=== PATIENT | male | born 1970 | race Caucasian/White ===

== ENCOUNTER 2018-06-23 16:38 | Inpatient (IN) ==
[2018-06-23] MEDS ORDERED: Sodium Chloride 0.9% 1,000 ML PRIMARY IV ONE (16:53)
[2018-06-23] MEDS ORDERED: Sodium Chloride 0.9% 1,000 ML, Magnesium Sulfate 2gm (Premix) 50 ML with Multivitamin I... IV ONE ×5 (16:54)
[2018-06-23 17:10] LABS: BASOPHILS # (AUTO) 0.01 10*3/UL; BASOPHILS % (AUTO) 0.2 % (0-1); EOSINOPHILS # (AUTO) 0.01 10*3/UL; EOSINOPHILS % (AUTO) 0.2 % (0-8); Hematocrit [HCT] 36.1 % (42.0-52.0); Hemoglobin [HGB] 13.3 g/dL (14.0-18.0); LYMPHOCYTES # (AUTO) 1.15 10*3/uL; MEAN CORPUSCULAR HGB CONC 36.8 g/dL (33-37); MEAN CORPUSCULAR VOLUME 81.3 FL (80-90); MEAN PLATELET VOLUME 9.3 FL (7.4-12.2); MONOCYTES # (AUTO) 0.68 10*3/UL (0.3-0.8); MONOCYTES % (AUTO) 11.3 % (5-15); NEUTROPHILS # (AUTO) 4.15 10*3/UL; NEUTROPHILS % (AUTO) 69.1 % (50-80); RED BLOOD COUNT 4.44 10^6/uL (4.70-6.10)
[2018-06-23 17:22] LABS: BLOOD UREA NITROGEN 9 mg/dL (7-22); SERUM ALBUMIN 3.9 g/dL (3.5-4.8)
[2018-06-23 17:24] LABS: PLATELET MORPHOLOGY COMMENT NORMAL MORPHOLOGY (NORM); SALICYLATE < 1.0 mg/dl (0-20); WBC MORPHOLOGY COMMENT NORMAL MORPHOLOGY (NORM)
[2018-06-23 17:25] LABS: RBC MORPHOLOGY COMMENT SEE COMMENTS (NORM)
[2018-06-23 18:14] LABS: LIPASE 856 IU/L (23-300)
[2018-06-23 19:45] LABS: URINE SAMPLE TYPE VOIDED SPECIMEN
[2018-06-23 19:47] LABS: CLARITY,URINE CLEAR (CLEAR)
[2018-06-23 19:48] LABS: AMPHETAMINE SCREEN NEGATIVE (NEG); CANNABINOID SCREEN,URINE NEGATIVE (NEG); COCAINE SCREEN NEGATIVE (NEG); METHADONE URINE SCREEN NEGATIVE (NEG); METHAMPHETAMINES SCREEN,URINE NEGATIVE (NEG); OPIATE SCREEN,URINE NEGATIVE (NEG); URINE SPECIFIC GRAVITY - MAN 1.005
--- NOTE | 2018-06-23 19:57 | DI ---
CT Head WO Contrast,06/23/2018 6:23 PM: Clinical History: Confusion Previous Exam: None at this facility. Findings: Multiple helically acquired CT images are obtained through the brain without contrast, and demonstrat e mild diffuse age-related volume loss. There is no mass, hemorrhage or midline shift. Surrounding so ft tissue and osseous structures are unremarkable. Impression: Mild diffuse age-related volume loss otherwise unremarkable.
--- NOTE | 2018-06-23 20:22 | DI ---
CT Abdomen/Pelvis W Contrast,06/23/2018 6:22 PM: Clinical History: Elevated pancreatic enzymes. Previous Exam: None at this facility. Findings: Multiple helically acquired CT images are obtained through the abdomen and pelvis following the intra venous administration of 75 cc of Isovue 300, and demonstrates clear lung bases. A few coronary artery calcifications are seen. There is diffuse fatty infiltration of the liver. The gallbladder is enlarged and distended with ston es within the gallbladder neck. The spleen is unremarkable. The pancreas, adrenals are unremarkable. There are prominent extrarenal p elves bilaterally. There is normal orthotopic insertion of the ureters on the urinary bladder. The ur inary bladder is enlarged and distended. The sigmoid colon is unremarkable. The descending colon, transverse colon and ascending colon are unremarkable. Diffuse degenerative changes of the spine are seen with loss of intervertebral disc height at the L5/ S1 level. Impression: 1. Enlarged, distended gallbladder containing layering stones within the gallbladder neck. 2. Enlarged and distended urinary bladder with some prominence of the ureters. 3. Fatty liver. 4. Normal pancreas.
--- NOTE | 2018-06-23 22:12 | PDOC ---
HPI - History of Present Illness History of Present Illness: This is a 7-year-old gentleman with no past medical history other than I believe schizophrenia is very hard historian patient is intoxicated. [facility] patient is arrested with handcuffs for nausea and vomiting and workup in the ER revealed alcoholic pancreatitis alcoholic intoxication and cholelithiasis on CAT scan and hypokalemia at present time patient is a has pretty severe tremors he is a heavy drinker he states he is a binge drinker and will be admitted for further evaluation and treatment denies chest painin shortness of breath does complain of mild left upper quadrant abdominal pain Past Medical History Medical History: Schizophrenia Tobacco Use: Current Every Day Smoker Do you dip or chew tobacco: No In the Past 12 Months, Have Used or Abuse Any of the Following Substance: None Medication / Allergies Home Medications: Home Medications 3 Medication Instructions Recorded Confirmed Type NK [No Home Medications Reported] 10/24/14 10/24/14 History Allergies/Adverse Reactions: Allergies 3 Allergy/AdvReac Type Severity Reaction Status Date / Time No Known Allergies Allergy Verified 10/24/14 23:50 Review of Systems - Review of Systems All Systems: Reviewed & No Additional Complaints Except as Stated - Respiratory Respiratory: DENIES: Negative System Review, Cough, Sputum, Dyspnea At Rest, Dyspnea with Exertion, Pleuritic Pain, Hemoptysis, Wheezing, Other, See HPI - Cardiovascular Cardiovascular: DENIES: Negative System Review, Chest Pain, Edema, Syncope, Palpitations, Orthopnea, Paroxysmal Nocturnal Dyspnea, Other, See HPI - Gastrointestinal Gastrointestinal / Abdominal: REPORTS: Nausea, Vomiting, Abdominal Pain. DENIES : Bloody Stool, Regurgitation Exam - Vitals Vital Signs: Vital Signs Temperature 97.8 F Temperature Source Temporal Artery Scan Pulse Rate [Pulse Oximeter 124 Right] Respiratory Rate 20 Blood Pressure [Left Arm] 153/82 Pulse Ox 98 Oxygen Delivery Method Room Air Height 6 ft 2 in Weight 240 lb - General General Appearance: Cooperative - Head Head Exam: Normal Inspection, Normocephalic, Atraumatic - Eye Eye Exam: POSITIVE: Normal Appearance, PERRL, EOMI, No Scleral Icterus - Respiratory Respiratory Exam: POSITIVE: Clear to Auscultation - Bilaterally, Breathing Non Labored, Normal To Percussion, Normal to Percussion and Palpation - Cardiovascular Cardiovascular Exam: POSITIVE: RRR, No Murmur, No Clicks, No Gallops, No Rubs, PMI Non-Displaced - GI/Abdominal Additional GI/Abdominal Exam Details: Mild left and right upper quadrant pain on deep palpation no guarding or rebound - Extremities Extremities Exam: POSITIVE: No Clubbing Present, No Edema Present, No Cyanosis Present - Neurological Neurological Exam: POSITIVE: Alert, Oriented x 3, No Facial Droop, Speech Intact / Clear Additional Neurological Exam Details: Moderate to severe tremors - Psychiatric Psychiatric Exam: POSITIVE: Anxious Results - Labs CBC and BMP: 06/23/18 17:00 06/23/18 17:00 Assessment and Plan - Patient Problems (1) Alcohol withdrawal syndrome Current Visit: Yes Status: Acute Comment: Patient will be admitted the treated with thiamine IV fluids multivitamin or a received banana bag in the ER IV fluids with potassium to replace his potassium CIWA scale with Ativan will be assessing him throughout the night in regards to his alcohol withdrawals patient is under arrest and to diabetes her with him Code(s): F10.239 - Alcohol dependence with withdrawal, unspecified (2) Alcoholic pancreatitis Current Visit: Yes Status: Acute Comment: Keep patient nothing by mouth this could also be from a cholelithiasis ultrasound is pending Dr. Dailey was consulted over the phone according to Dr. Prather Code(s): K85.20 - Alcohol induced acute pancreatitis without necrosis or infection (3) Cholelithiasis Current Visit: Yes Status: Acute Comment: Ultrasound pending to evaluate common bile duct Code(s): K80.20 - Calculus of gallbladder without cholecystitis without obstruction (4) Psychotic disorder Current Visit: No Status: Acute Code(s): F29 - Unspecified psychosis not due to a substance or known physiological condition
--- NOTE | 2018-06-23 23:10 | DI ---
EXAM: US Abdomen Limited, Right Upper Quadrant CLINICAL HISTORY: ITS.REASON gallstones, elevated pancreous enzymes Physician Notes: Tech Comments: TECHNIQUE: Real-time ultrasound of the right upper quadrant with image documentation. COMPARISON: No relevant prior studies available. FINDINGS: Liver: Echogenic liver suggesting fatty infiltration or hepatocellular disease. Hepatomegaly, 19.4 cm. Gallbladder: Cholelithiasis and sludge. The gallbladder wall is at upper limits of normal measuring 3 mm. Positive sonographic Mills sign. Common bile duct: Common bile duct upper limit of normal measuring 6 mm Pancreas: Pancreas is the mostly obscured. Right kidney: No hydronephrosis. IMPRESSION: Cholelithiasis and sludge. The gallbladder wall is at upper limits of normal measuring 3 mm. Positive sonographic Mills sign.
[2018-06-24] MEDS ORDERED: LIDOCAINE W/ SODIUM BICARB 0.5 ML SYR SUBD PRN (01:57)
[2018-06-24] MEDS ORDERED: HYDROmorphone 2 MG/1 ML IVP PRN (01:57)
[2018-06-24] MEDS ORDERED: ONDANSETRON 4 MG/2 ML VIAL IVP PRN (01:57)
[2018-06-24] MEDS ORDERED: LORazepam 2 MG/1 ML VIAL IVP PRN (01:57)
[2018-06-24] MEDS ORDERED: LORazepam Inj(ETOH withdrawal) 2 MG/ML VIAL IVP PRN (01:57)
[2018-06-24] MEDS ORDERED: ACETAMINOPHEN 500 MG TABLET PO PRN (01:57)
[2018-06-24] MEDS ORDERED: MAG HYDROX/AL HYDROX/SIMETH 30 ML SUSP PO PRN (01:57)
[2018-06-24] MEDS ORDERED: MAGNESIUM 400 MG/5 ML - 30 ML (MILK OF MAGNESIA) PO PRN (01:57)
[2018-06-24] MEDS ORDERED: Loperamide Tab 2 MG TABLET PO PRN (01:57)
[2018-06-24] MEDS: HEPARIN 5000 UNIT/1 ML SUBCUT SCH ×3 (02:10→19:59)
[2018-06-24] MEDS: LORazepam Inj(ETOH withdrawal) 2 MG/ML VIAL IVP PRN ×6 (02:11→19:54)
[2018-06-24 05:07] LABS: BILIRUBIN,URINE NEGATIVE (NEG); COLOR,URINE YELLOW (Y); GLUCOSE, URINE (UA) NEGATIVE (NEG); OCCULT BLOOD,URINE SMALL (NEG); PROTEIN,URINE NEGATIVE (NEG); UROBILINOGEN,URINE 0.2 EU/dL (0.2)
[2018-06-24 05:14] LABS: BACTERIA,URINE RARE; SQUAMOUS EPITHELIAL CELL,UR FEW; WBC,URINE 0
--- NOTE | 2018-06-24 07:12 | PDOC ---
General Adult HPI - General Chief Complaint: Clear for Confinement/DUI Draw Stated Complaint: schizophrenia issues/etoh Date Seen by Provider: 06/23/18 Time Seen by Provider: 16:40 Source: POSITIVE: Patient, Police, EMS Exam Limitations: POSITIVE: Intoxication Nurse's Notes Reviewed & Considered: Yes EMS Report Reviewed & Considered: Verbal - History of Present Illness Initial Comment: The patient is a 47-year-old male who is brought to the emergency department by EMS for medical clearance for correction. The patient does have a history of schizophrenia and a history of alcohol abuse. He does not currently take any medications. The patient's mom was discovered apparently killed several days ago in their home where the patient also resides. He had initially called 911 stating that he had "killed his mother". When EMS arrived the patient's mother was in fact and appeared to have been for several days. The patient states that he has been drinking heavily. EMS administered 3 doses of Zofran sublingual in route secondary to active nausea and vomiting. On arrival the patient reports abdominal pain. He does not have any other complaints. He states that he has been drinking a lot recently. Have you received a tetanus shot in the past 10 years?: No - Patient Home Medications Home Medications: Home Medications NK [No Home Medications Reported] 10/24/14 - Patient Allergies Allergies/Adverse Reactions: Allergies 3 Allergy/AdvReac Type Severity Reaction Status Date / Time No Known Allergies Allergy Verified 06/24/18 06:25 Past Medical History - heen HEENT History: Denies History Cardiovascular History: Denies History Respiratory History: Denies History Gastrointestinal History: Denies History Genitourinary History: Denies History Endocrine History: Denies History Musculoskeletal History: Denies History Neurological History: Denies History Blood Disorders: Denies History Psychiatric History: Schizophrenia Additional Psychiatric History: paranoid schizophrenia Male Reproductive History: Denies History Cancer History: Denies History In Past Year Been Physically Harmed or Verbally Threatened: No History of MDRO: No Tobacco Use: Current Every Day Smoker Alcohol Use: Other Type of alcohol normally used: Hard Liquor In the Past 12 Months, Have Used or Abuse Any Substance: None Previous Surgical History: No Type / Date of Surgery: "spinal, no wait my hand, no i don't think so"... unsure Significant Family History: No pertinent family hx Past Medical History Reviewed: Reviewed - No Changes ROS - Limitations ROS Limitations: Clinical Condition, Intoxication Constitution: DENIES: Fever Cardiovascular: DENIES: Chest Pain Neurological: DENIES: Headache Gastrointestinal: REPORTS: Abdominal Pain, Nausea, Vomitting Musculoskeletal: REPORTS: Denies MS Symptoms Eyes: REPORTS: Denies Symptoms ENT: REPORTS: Denies Symptoms Skin: DENIES: Rash General Adult Exam - General Appearance General Appearance: POSITIVE: Other (The patient is awake, he does appear to be intoxicated, he does answer questions and intermittently laughs inappropriately) - HEENT HEENT: POSITIVE: Head Inspection Nml, Eyes Inspection Nml, Ears Inspection Nml, Pharynx Inspect. Nml, Dry Mucous Membranes - Neck Neck: POSITIVE: Normal Inspection. NEGATIVE: Lymphadenopathy - Respiratory Respiratory: POSITIVE: No Respiratory Distress, Breath Sounds Normal - Cardiovascular Cardiovascular: POSITIVE: Regular Rate & Rhythm, No Murmur Peripheral Pulses: Dorsalis-pedis (R): 2+, Dorsalis-pedis (L): 2+ - Abdomen Abdomen: Soft: (All Quadrants), No Distention: (All Quadrants) Additional Abdominal Details: He does have tenderness in the epigastric region without guarding or rebound tenderness - Skin Skin: POSITIVE: Normal Color, No Rash - Extremities Extremity: Normal ROM: (All Extremities), Normal Inspection: (All Extremities) - Neurological / Psychological Neurological: POSITIVE: Oriented X3, Motor Normal, Sensation Normal, Other (No focal neurologic deficit) General Adult Progress - Results Reviewed by me Xrays/CTs/US Reviewed by me: Yes Discussed with Radiologist: Yes Radiology Findings: CT scan of the abdomen and pelvis reveals evidence of cholelithiasis and distended gallbladder, no significant inflammation around the pancreas, no other acute intra-abdominal findings per radiologist. Ultrasound of the gallbladder reveals a distended gallbladder with gallstones, gallbladder wall is borderline in thickness at 3 mm, common bile duct measures 6 mm at the upper limits of normal. Head CT shows no acute intracranial findings per radiologist. Lab Results Reviewed by Me: Yes Lab Results:: Laboratory Results 3 06/23/18 06/23/18 06/23/18 17:00 17:00 17:00 WBC 6.00 RBC 4.44 L Hgb 13.3 L Hct 36.1 L MCV 81.3 MCH 30.0 MCHC 36.8 RDW Std Deviation 42.5 RDW Coeff of Maria [place]isa 14.7 H Plt Count 89 L MPV 9.3 Immature Gran % (Auto) 0 Neut % (Auto) 69.1 Lymph % (Auto) 19.2 [place] % (Auto) 11.3 Eos % (Auto) 0.2 Baso % (Auto) 0.2 Immature Gran # (Auto) 0 Neut # (Auto) 4.15 Lymph # (Auto) 1.15 [place] # (Auto) 0.68 Eos # (Auto) 0.01 Baso # (Auto) 0.01 WBC Morphology Comment Normal morphology Plt Morphology Comment Normal morphology RBC Morph Comment See comments Sodium 128 L Potassium 3.4 L Chloride 93 L Carbon Dioxide 16 L Anion Gap 19 BUN 9 Creatinine 1.0 Estimated GFR > 60 BUN/Creatinine Ratio 9.00 Glucose 119 H Calculated Osmolality 265.0 L Calcium 8.0 L Magnesium 1.7 Total Bilirubin 0.7 AST 120 H ALT 67 Alkaline Phosphatase 77 Total Protein 7.1 Albumin 3.9 Globulin 3.1 Albumin/Globulin Ratio 1.20 L Amylase Lipase TSH 9.96 H Free T4 0.85 L Ur Collection Type Urine Color Urine Clarity Urine pH Ur Specific [place] U Specif Grav (Refrac) Urine Protein Urine Glucose (UA) Urine Ketones Urine Occult Blood Urine Nitrate Urine Bilirubin Urine Urobilinogen Ur Leukocyte Esterase Urine RBC Urine WBC Ur Squamous Epith Cells Ur Renal Epithelial Cell Urine Crystals Urine Bacteria Urine Casts Urine Mucus Urine Trichomonas Urine Yeast Ur Culture Indicated? Salicylates < 1.0 Urine Opiates Screen Ur Buprenorphine Ur Oxycodone Screen Urine Methadone Screen Ur Propoxyphene Screen Acetaminophen < 10.0 Barbiturate Screen U Tricyclic Antidepress Phencyclidine Screen Amphetamines Screen U Methamphetamines Scrn Benzodiazepines Screen Cocaine Screen U Marijuana (THC) Screen Serum Alcohol 414 H 3 06/23/18 06/23/18 17:00 19:15 WBC RBC Hgb Hct MCV MCH MCHC RDW Std Deviation RDW Coeff of [place] Plt Count MPV Immature Gran % (Auto) Neut % (Auto) Lymph % (Auto) [place] % (Auto) Eos % (Auto) Baso % (Auto) Immature Gran # (Auto) Neut # (Auto) Lymph # (Auto) [place] # (Auto) Eos # (Auto) Baso # (Auto) WBC Morphology Comment Plt Morphology Comment RBC Morph Comment Sodium Potassium Chloride Carbon Dioxide Anion Gap BUN Creatinine Estimated GFR BUN/Creatinine Ratio Glucose Calculated Osmolality Calcium Magnesium Total Bilirubin AST ALT Alkaline Phosphatase Total Protein Albumin Globulin Albumin/Globulin Ratio Amylase 218 H Lipase 856 H TSH Free T4 Ur Collection Type Voided specimen Urine Color Yellow Urine Clarity Clear Urine pH 6.0 Ur Specific [place] 1.005 U Specif Grav (Refrac) 1.005 Urine Protein Negative Urine Glucose (UA) Negative Urine Ketones Negative Urine Occult Blood Small H Urine Nitrate Negative Urine Bilirubin Negative Urine Urobilinogen 0.2 Ur Leukocyte Esterase Negative Urine RBC 1-3 Urine WBC 0 Ur Squamous Epith Cells Few Ur Renal Epithelial Cell None Urine Crystals None Urine Bacteria Rare Urine Casts None Urine Mucus Few Urine Trichomonas None Urine Yeast None Ur Culture Indicated? Culture not set Salicylates Urine Opiates Screen Negative Ur Buprenorphine Negative Ur Oxycodone Screen Negative Urine Methadone Screen Negative Ur Propoxyphene Screen Negative Acetaminophen Barbiturate Screen Negative U Tricyclic Antidepress Negative Phencyclidine Screen Negative Amphetamines Screen Negative U Methamphetamines Scrn Negative Benzodiazepines Screen Negative Cocaine Screen Negative U Marijuana (THC) Screen Negative Serum Alcohol CBC and BMP: 06/23/18 17:00 06/23/18 17:00 - Patient's Progress MDM / ED Course: The patient appeared to be intoxicated on arrival and appeared to be significantly dehydrated. An IV was established and he received 1 L bolus of normal saline. He also received a banana bag. Blood work does reveal sodium of 128 and potassium of 3.4, lipase is elevated at 850 and amylase is elevated at 208. Liver enzymes are normal except for slightly elevated AST. Blood alcohol is significantly elevated at 414. Tox screen is negative. TSH is elevated at 9.9 with a free T4 of 0.85. CT scan of the head was unremarkable per radiologist. CT scan of the abdomen and pelvis was performed secondary to the elevated pancreas enzymes and shows evidence of cholelithiasis and distended gallbladder with no other acute abnormalities per radiologist. Subsequent gallbladder ultrasound shows distended gallbladder with gallstones and sludge, gallbladder wall is borderline at 3 mm and common bile duct measures [address] Dailey was consulted from general surgery prior to the ultrasound results. His recommendation was for medical treatment and gallbladder ultrasound to evaluate bile duct. The patient has alcohol intoxication with history of alcohol abuse and schizophrenia. He also has evidence of current pancreatitis which may be alcoholic pancreatitis versus gallstone pancreatitis. Dr. Zaragoza was contacted and has agreed to admit the patient. The patient is a significant risk for withdrawal. - Consult Counseled: POSITIVE: Patient, RE: Lab Results, RE: Radiology Results, RE: DX Patient Care Time - Estimated PCT Patient Care Time (In Minutes): 50 Vital Signs - VS Reviewed Vital Signs Reviewed: Yes Discharge Clinical Impression: Cholelithiasis, Pancreatitis, Alcohol intoxication, Schizophrenia, Dehydration , Hypothyroidism, Hyponatremia, Hypokalemia Discharge Disposition: Admit to Inpatient Condition: Fair Date Decision to Admit to Inpatient: 06/23/18 Time Decision to Admit to Inpatient: 22:00
[2018-06-24] MEDS ORDERED: DEXTROSE 50%-WATER SYRINGE 50 ML SYRINGE IVP ONE (08:45)
[2018-06-24] MEDS: PANTOPRAZOLE IV 40 MG VIAL IVP SCH (08:53)
[2018-06-24] MEDS: MAGNESIUM OXIDE 400 MG TABLET PO SCH ×2 (08:54→21:03)
[2018-06-24] MEDS ORDERED: THIAMINE 100 MG/1 ML - 2 ML IM SCH (09:00)
[2018-06-24 09:27] LABS: BASOPHILS # (AUTO) 0.01 10*3/UL; BASOPHILS % (AUTO) 0.2 % (0-1); EOSINOPHILS # (AUTO) 0.02 10*3/UL; EOSINOPHILS % (AUTO) 0.3 % (0-8); Hematocrit [HCT] 35.5 % (42.0-52.0); Hemoglobin [HGB] 12.8 g/dL (14.0-18.0); MEAN CORPUSCULAR HGB CONC 36.1 g/dL (33-37); MEAN CORPUSCULAR VOLUME 83.3 FL (80-90); MONOCYTES # (AUTO) 0.56 10*3/UL (0.3-0.8); MONOCYTES % (AUTO) 9.2 % (5-15); RED BLOOD COUNT 4.26 10^6/uL (4.70-6.10)
[2018-06-24 09:29] LABS: BLOOD UREA NITROGEN 6 mg/dL (7-22); BUN/CREATININE RATIO 6.66 (6-20); LIPASE 627 IU/L (23-300); SERUM ALBUMIN 3.4 g/dL (3.5-4.8)
[2018-06-24 09:54] LABS: PLATELET MORPHOLOGY COMMENT NORMAL MORPHOLOGY (NORM); RBC MORPHOLOGY COMMENT SEE COMMENTS (NORM); WBC MORPHOLOGY COMMENT NORMAL MORPHOLOGY (NORM)
--- NOTE | 2018-06-24 11:58 | PDOC(PROG) ---
Interval History: Patient is resting comfortably on Ativan for alcohol withdrawal syndrome Objective : Data - Labs CBC and BMP: 06/24/18 05:00 06/24/18 05:00 Objective : Exam - General General Appearance: Cooperative - Respiratory Respiratory Exam: Clear to Auscultation - Bilaterally, Breathing Non Labored, Normal To Percussion, Normal to Percussion and Palpation - Cardiovascular Cardiovascular Exam: RRR, No Murmur, No Clicks, No Gallops, No Rubs, PMI Non- Displaced - GI/Abdominal GI/Abdominal Exam: Normal Bowel Sounds, Non Tender, Non Distended, Soft, No Masses, No Hepatomegaly, No Splenomegaly, No Organomegaly - Extremities Extremities Exam: No Clubbing Present, No Edema Present, No Cyanosis Present Assessment and Plan - Patient Problems (1) Alcohol withdrawal syndrome Current Visit: Yes Status: Acute Comment: Continue Ativan per CIWA scale patient is resting comfortably alcohol level done in the 150 patient in the mild withdrawals are present time this could exacerbate in the future we will continue monitoring Code(s): F10.239 - Alcohol dependence with withdrawal, unspecified (2) Alcoholic pancreatitis Current Visit: Yes Status: Acute Comment: Lipase slightly improved ultrasound the common bile duct 6 mm Code(s): K85.20 - Alcohol induced acute pancreatitis without necrosis or infection (3) Cholelithiasis Current Visit: Yes Status: Acute Comment: Common bile duct 6 mm bilirubin is normal I believe this is not gallstone pancreatitis at this time Code(s): K80.20 - Calculus of gallbladder without cholecystitis without obstruction (4) Psychotic disorder Current Visit: No Status: Acute Code(s): F29 - Unspecified psychosis not due to a substance or known physiological condition
--- NOTE | 2018-06-24 14:33 | CONSULT ---
Consult Note - Consult Consult Date: 06/24/18 Reason for Consult: PreOp Consulation : General Surgery Requesting Physician: Dr. Masoud Chapa's Primary Care Provider: NONE NONE - History of Present Illness History of Present Illness: The patient is a 47-year-old male I'm asked to see for gallstones and pancreatitis. Apparently the patient called 911 reporting that he killed his mother. He was brought to the hospital for medical clearance prior to incarceration. He was grossly intoxicated. He was found to have an elevated amylase at 218 and lipase at 850. Those numbers have both decreased this morning but are still elevated. He reports he's been drinking about 20 cans of beer a day. His bilirubin and alkaline phosphatase were normal as was his ALT. His AST was elevated slightly. White blood count was normal. CT scan showed a fatty liver with gallstones. No evidence of acute pancreatitis. Subsequent ultrasound shows gallstones without evidence of acute cholecystitis. The wall was measured at 3 mm in thickness but I think that is exaggerated and today's radiologist agrees. There are some mobile gallstones within the gallbladder. Common bile duct is upper normal at 6 mm. Last night the patient's blood alcohol was 414. This morning it is still 165. I was told by the ER physician he has a history of schizophrenia but the patient denies it. He has seen psychiatrists in the past. He is not on any medications. The patient tells me that he makes his own decisions and no one has DURABLE POWER OF PAN CLEANER for him. He denies a history of prior pancreatitis. He was unaware he had gallstones. Patient denies any significant abdominal pain. Review of Systems - Gastrointestinal Gastrointestinal / Abdominal: REPORTS: Negative System Review Past Medical History Medical History: Schizophrenia. This alcohol consumption. Pancreatitis. Gallstones. Tobacco Use: Current Every Day Smoker Do you dip or chew tobacco: No In the Past 12 Months, Have Used or Abuse Any of the Following Substance: None Alcohol Use: Heavy (20 cans of beer a day) Medication / Allergies Home Medications: Home Medications 3 Medication Instructions Recorded Confirmed Type NK [No Home Medications Reported] 10/24/14 06/24/18 History Allergies/Adverse Reactions: Allergies 3 Allergy/AdvReac Type Severity Reaction Status Date / Time No Known Allergies Allergy Verified 06/24/18 06:25 Results - Labs CBC and BMP: 06/24/18 05:00 06/24/18 05:00 - Imaging Status: Image Reviewed by Me (And discussed with the radiologist), Report Reviewed by Me Exam - Vitals Vital Signs: Vital Signs Temperature 99 F Temperature Source Oral Pulse Rate [Pulse Oximeter 75 Right] Pulse Rate 75 Respiratory Rate 20 Blood Pressure [Left Arm] 152/70 Blood Pressure 152/70 Pulse Ox 95 Oxygen Flow Rate 2 Oxygen Delivery Method Nasal Cannula Height 6 ft 2 in Weight 235 lb 11.2 oz - General General Appearance: No Acute Distress, Cooperative Additional General Exam Details: Tremors. - Respiratory Respiratory Exam: POSITIVE: Clear to Auscultation - Bilaterally, Breathing Non Labored - Cardiovascular Cardiovascular Exam: POSITIVE: RRR, No Murmur - GI/Abdominal GI/Abdominal Exam: POSITIVE: Normal Bowel Sounds, Non Tender, Non Distended, Soft Assessment and Plan - Patient Problems (1) Acute pancreatitis Current Visit: Yes Status: Acute Comment: I favor alcohol -induced pancreatitis despite him having gallstones. More likely alcohol-related with normal alkaline phosphatase and bilirubin. He has a mild elevation of his AST but he has been drinking a lot and has fatty infiltration of his liver on CT scan. His pancreatitis is relatively mild. It is improving. Could probably start the patient on clear liquids. Continue to follow his labs. Patient can be discharged with resolution of his pancreatitis and his alcohol withdrawal. Code(s): K85.90 - Acute pancreatitis without necrosis or infection, unspecified (2) Alcohol intoxication Current Visit: Yes Status: Acute Comment: Patient is still intoxicated. Blood alcohol was 165 this morning. Probably in alcohol withdrawal. He is being treated for the same. Code(s): F10.929 - Alcohol use, unspecified with intoxication, unspecified (3) Schizophrenia Current Visit: Yes Status: Acute Comment: By report. Code(s): F20.9 - Schizophrenia, unspecified (4) Cholelithiasis Current Visit: Yes Status: Acute Comment: Patient has gallstones but no evidence of acute cholecystitis. No indication for acute surgical intervention. Could not obtain consent for surgery without a formal psychiatric evaluation and resolution of his alcohol withdrawal. Code(s): K80.20 - Calculus of gallbladder without cholecystitis without obstruction Qualifiers: Cholelithiasis location: gallbladder Cholecystitis presence: without cholecystitis Biliary obstruction: without biliary obstruction Qualified Code(s): K80.20 - Calculus of gallbladder without cholecystitis without obstruction
[2018-06-25] MEDS: HEPARIN 5000 UNIT/1 ML SUBCUT SCH ×3 (03:01→18:37)
[2018-06-25 06:10] LABS: BLOOD UREA NITROGEN 10 mg/dL (7-22); BUN/CREATININE RATIO 11.11 (6-20); LIPASE 558 IU/L (23-300)
[2018-06-25] MEDS: PANTOPRAZOLE IV 40 MG VIAL IVP SCH (08:52)
[2018-06-25] MEDS: MAGNESIUM OXIDE 400 MG TABLET PO SCH (08:52)
--- NOTE | 2018-06-25 10:29 | PDOC(PROG) ---
Interval History: Patient is doing well has no complaints no abdominal pain scoring about 9 on CIWA scale improved tremors Objective : Data - Labs CBC and BMP: 06/24/18 05:00 06/25/18 04:33 Objective : Exam - General General Appearance: No Acute Distress, Cooperative - Respiratory Respiratory Exam: Clear to Auscultation - Bilaterally, Breathing Non Labored, Normal To Percussion, Normal to Percussion and Palpation - Cardiovascular Cardiovascular Exam: RRR, No Murmur, No Clicks, No Gallops, No Rubs, PMI Non- Displaced - GI/Abdominal GI/Abdominal Exam: Normal Bowel Sounds, Non Tender, Non Distended, Soft, No Masses, No Hepatomegaly, No Splenomegaly, No Organomegaly - Extremities Extremities Exam: No Clubbing Present, No Edema Present, No Cyanosis Present - Neurological Neurological Exam: Alert, Oriented x 3, No Facial Droop, Speech Intact / Clear, Moves All Extremities Equally Assessment and Plan - Patient Problems (1) Alcohol withdrawal syndrome Current Visit: Yes Status: Acute Comment: Scoring about 9 on CIWA scale continue Ativan Code(s): F10.239 - Alcohol dependence with withdrawal, unspecified (2) Alcoholic pancreatitis Current Visit: Yes Status: Acute Comment: Improving no pain on palpation no complaints we'll advance to clear liquids and we'll see how the patient does Code(s): K85.20 - Alcohol induced acute pancreatitis without necrosis or infection (3) Cholelithiasis Current Visit: Yes Status: Acute Comment: Ultimately will probably need his gallbladder removed as an outpatient Code(s): K80.20 - Calculus of gallbladder without cholecystitis without obstruction Qualifiers: Cholelithiasis location: gallbladder Cholecystitis presence: without cholecystitis Biliary obstruction: without biliary obstruction Qualified Code(s): K80.20 - Calculus of gallbladder without cholecystitis without obstruction
[2018-06-25 16:07] LABS: BLOOD UREA NITROGEN 9 mg/dL (7-22); BUN/CREATININE RATIO 11.25 (6-20); SERUM ALBUMIN 2.9 g/dL (3.5-4.8)
[2018-06-25] MEDS: LORazepam Inj(ETOH withdrawal) 2 MG/ML VIAL IVP PRN (22:35)
[2018-06-26] MEDS: LORazepam Inj(ETOH withdrawal) 2 MG/ML VIAL IVP PRN (00:32)
[2018-06-26] MEDS: HEPARIN 5000 UNIT/1 ML SUBCUT SCH ×3 (02:54→20:41)
[2018-06-26 05:22] LABS: BLOOD UREA NITROGEN 7 mg/dL (7-22); BUN/CREATININE RATIO 8.75 (6-20); LIPASE 768 IU/L (23-300); SERUM ALBUMIN 3.1 g/dL (3.5-4.8)
[2018-06-26] MEDS ORDERED: HYDROmorphone 2 MG/1 ML IVP PRN (12:06)
--- NOTE | 2018-06-26 13:46 | PDOC(PROG) ---
Date of Service: 06/26/18 Time of Service: 13:40 Interval History: Patient seen and evaluated earlier today. Complained of pain after breakfast this morning. Isolates of the right upper quadrant, epigastrium and left upper quadrant region. Has had some nausea and increased pain today. I did review his radiology reports and discussed with Dr. Zaragoza, and with a positive Mills sign, significant increase in AST despite alcohol use in the past and recent binge drinking, this seems like a big jump, even with a normal bilirubin, so I' m somewhat concerned it could be a common bile duct obstruction. Objective : Data - Labs CBC and BMP: 06/24/18 05:00 06/26/18 04:50 Additional Lab Results: 06/25/18 06/26/18 15:45 04:50 AST 91 H 384 H ALT 54 130 H Alkaline Phosphatase 113 Total Protein 6.1 Albumin 3.1 L Globulin 3.0 Lipase 768 H Objective : Exam - General General Appearance: No Acute Distress, Cooperative Additional General Exam Details: Vital Signs - Last Taken Temperature 98.6 F 06/26/18 07:11 Pulse Rate 60 06/26/18 07:11 Respiratory Rate 18 06/26/18 07:11 Blood Pressure 158/92 06/26/18 07:11 Pulse Ox 98 06/26/18 07:00 - Head Head Exam: Normal Inspection, Normocephalic, Atraumatic - Eye Eye Exam: No Scleral Icterus - ENT ENT Exam: Mucous Membranes Moist - Respiratory Respiratory Exam: Clear to Auscultation - Bilaterally, Breathing Non Labored - Cardiovascular Cardiovascular Exam: RRR, No Murmur, No Clicks, No Gallops, No Rubs, No JVD - GI/Abdominal GI/Abdominal Exam: Normal Bowel Sounds, Non Tender, Non Distended, Soft - Extremities Extremities Exam: No Clubbing Present, No Edema Present, No Cyanosis Present - Neurological Neurological Exam: Alert, Oriented x 3 (Patient knows who he is, he knows that he is in the hospital, and he knows that he is here because of pancreatitis.), No Facial Droop, Speech Intact / Clear, Moves All Extremities Equally Assessment and Plan - Patient Problems (1) Alcoholic pancreatitis Current Visit: Yes Status: Acute Code(s): K85.20 - Alcohol induced acute pancreatitis without necrosis or infection Qualifiers: Chronicity: acute Acute pancreatitis complication: no infection or necrosis Qualified Code(s): K85.20 - Alcohol induced acute pancreatitis without necrosis or infection (2) Alcohol withdrawal syndrome Current Visit: Yes Status: Acute Code(s): F10.239 - Alcohol dependence with withdrawal, unspecified (3) Cholelithiasis Current Visit: Yes Status: Acute Code(s): K80.20 - Calculus of gallbladder without cholecystitis without obstruction Qualifiers: Cholelithiasis location: gallbladder Cholecystitis presence: without cholecystitis Biliary obstruction: without biliary obstruction Qualified Code(s): K80.20 - Calculus of gallbladder without cholecystitis without obstruction (4) Hypothyroidism Current Visit: Yes Status: Acute Code(s): E03.9 - Hypothyroidism, unspecified Qualifiers: Hypothyroidism type: acquired Qualified Code(s): E03.9 - Hypothyroidism, unspecified (5) Psychiatric disorder Current Visit: Yes Status: Acute Comment: There is a reported history of schizophrenia, but I don't have any prior documentation to review to collaborate that. Patient has not been on medications prior to the hospital stay. Code(s): F99 - Mental disorder, not otherwise specified - Assessment / Plan Additional Assessment/Plan Details: I'll change patient's status back to nothing by mouth. I'd like to get a MRI of the abdomen to make sure there is no common bile duct obstruction, particularly with a positive Mills sign on ultrasound, multiple gallstones and sludge. While this is most likely alcoholic pancreatitis, I certainly cannot rule out gallstone pancreatitis could've been an issue. He could've passed a stone earlier or sludge with minimal elevation and total bilirubin and LFTs. That being said, he is also at a point where he would enter alcohol withdrawal should develop in a binge drinker as he is now about 48 hours post a blood alcohol of 0. Pain medications and antiemetics. These will be administered parenterally IV fluids and be written. Check labs in a.m.
[2018-06-26] MEDS: D5-1/2NS + 10mEq KCL 1,000 ML PRIMARY IV SCH ×2 (14:36→22:53)
[2018-06-27] MEDS: HEPARIN 5000 UNIT/1 ML SUBCUT SCH ×3 (04:18→20:29)
[2018-06-27] MEDS: LEVOTHYROXINE 50 MCG TABLET PO SCH (04:31)
[2018-06-27 05:35] LABS: BASOPHILS # (AUTO) 0.01 10*3/UL; BASOPHILS % (AUTO) 0.3 % (0-1); EOSINOPHILS # (AUTO) 0.09 10*3/UL; EOSINOPHILS % (AUTO) 2.4 % (0-8); Hematocrit [HCT] 33.8 % (42.0-52.0); Hemoglobin [HGB] 11.8 g/dL (14.0-18.0); LYMPHOCYTES # (AUTO) 0.74 10*3/uL; MEAN CORPUSCULAR HEMOGLOBIN 30.2 PG (27-31); MEAN CORPUSCULAR HGB CONC 34.9 g/dL (33-37); MEAN CORPUSCULAR VOLUME 86.4 FL (80-90); MEAN PLATELET VOLUME 11.1 FL (7.4-12.2); MONOCYTES # (AUTO) 0.37 10*3/UL (0.3-0.8); MONOCYTES % (AUTO) 9.8 % (5-15); NEUTROPHILS # (AUTO) 2.55 10*3/UL; NEUTROPHILS % (AUTO) 67.6 % (50-80); RED BLOOD COUNT 3.91 10^6/uL (4.70-6.10)
[2018-06-27 05:58] LABS: BLOOD UREA NITROGEN 3 mg/dL (7-22); BUN/CREATININE RATIO 4.28 (6-20); LIPASE 542 IU/L (23-300); SERUM ALBUMIN 2.7 g/dL (3.5-4.8)
[2018-06-27 06:20] LABS: PLATELET MORPHOLOGY COMMENT NORMAL MORPHOLOGY (NORM); RBC MORPHOLOGY COMMENT NORMAL MORPHOLOGY (NORM); WBC MORPHOLOGY COMMENT NORMAL MORPHOLOGY (NORM)
[2018-06-27] MEDS: D5-1/2NS + 10mEq KCL 1,000 ML PRIMARY IV SCH ×3 (06:54→21:14)
--- NOTE | 2018-06-27 08:58 | DI ---
MRI Abdomen WO Contrast,06/27/2018 7:29 AM: Clinical History: Pancreatitis and sludge. Question common bile duct stone. Previous Exam: None at this facility. Findings: Multiplanar MR images are obtained through the abdomen following MRCP protocol, and demonstrate layer ing stones within the gallbladder with a thickened gallbladder wall. The common bile duct is within normal limits. There is no evidence of filling defect or truncation. V isualized portions of the pancreatic duct are normal. Limited evaluation of the spleen, liver, adrenals and kidneys are unremarkable. The major vascular flow voids are unremarkable. Impression: Cholelithiasis and thickening of the gallbladder wall without common bile duct stones.
[2018-06-27] MEDS ORDERED: Magnesium Sulfate 2gm (Premix) 2 GM/50 ML BAG IV ONE (11:31)
--- NOTE | 2018-06-27 18:21 | PDOC(PROG) ---
Date of Service: 06/27/18 Time of Service: 18:16 Interval History: Patient seen and evaluated earlier. I spoke with GI in [place], they think that the liver enzyme and bilirubin are more consistent with acute alcoholic hepatitis. The patient denies any abdominal pain, nausea or vomiting, and actually states that he's hungry. Given his elevation in lipase after eating and increase in pain, I'm reluctant to let him eat today and tell the lipase is closer to normal. MRI abdomen negative for, bile duct obstruction. GI in [place] stated that they did not think the patient needed an ERCP to explore further at this time. Objective : Data - Labs CBC and BMP: 06/27/18 04:25 06/27/18 04:25 Additional Lab Results: 06/27/18 04:25 Magnesium 1.6 Total Bilirubin 3.4 H AST 1243 H ALT 826 H Alkaline Phosphatase 188 H Total Protein 5.5 L Albumin 2.7 L Globulin 2.8 Albumin/Globulin Ratio 0.90 L Lipase 542 H - Imaging MRI Status: Report Reviewed by Me (Negative for common bile duct obstruction) Objective : Exam - General General Appearance: No Acute Distress, Cooperative Additional General Exam Details: Vital Signs - Last Taken Temperature 96.5 F L 06/27/18 16:43 Pulse Rate 56 L 06/27/18 16:43 Respiratory Rate 16 06/27/18 16:43 Blood Pressure 156/82 06/27/18 16:43 Pulse Ox 95 06/27/18 16:43 - Eye Eye Exam: No Scleral Icterus - ENT ENT Exam: Mucous Membranes Moist - Respiratory Respiratory Exam: Clear to Auscultation - Bilaterally, Breathing Non Labored - Cardiovascular Cardiovascular Exam: RRR, No Murmur, No Clicks, No Gallops, No Rubs, No JVD - GI/Abdominal GI/Abdominal Exam: Normal Bowel Sounds, Non Tender, Non Distended, Soft - Extremities Extremities Exam: No Clubbing Present, No Edema Present, No Cyanosis Present - Neurological Neurological Exam: Alert, Oriented x 3, No Facial Droop, Speech Intact / Clear, Moves All Extremities Equally - Psychiatric Psychiatric Exam: Flat Affect Assessment and Plan - Patient Problems (1) Alcoholic pancreatitis Current Visit: Yes Status: Acute Code(s): K85.20 - Alcohol induced acute pancreatitis without necrosis or infection Qualifiers: Chronicity: acute Acute pancreatitis complication: no infection or necrosis Qualified Code(s): K85.20 - Alcohol induced acute pancreatitis without necrosis or infection (2) Alcohol withdrawal syndrome Current Visit: Yes Status: Resolved Code(s): F10.239 - Alcohol dependence with withdrawal, unspecified Qualifiers: Complication of substance-induced condition: uncomplicated Qualified Code(s ): F10.230 - Alcohol dependence with withdrawal, uncomplicated (3) Cholelithiasis Current Visit: Yes Status: Acute Code(s): K80.20 - Calculus of gallbladder without cholecystitis without obstruction Qualifiers: Cholelithiasis location: gallbladder Cholecystitis presence: without cholecystitis Biliary obstruction: without biliary obstruction Qualified Code(s): K80.20 - Calculus of gallbladder without cholecystitis without obstruction (4) Hypothyroidism Current Visit: Yes Status: Acute Code(s): E03.9 - Hypothyroidism, unspecified Qualifiers: Hypothyroidism type: acquired Qualified Code(s): E03.9 - Hypothyroidism, unspecified (5) Psychiatric disorder Current Visit: Yes Status: Acute Code(s): F99 - Mental disorder, not otherwise specified (6) Hypertension Current Visit: Yes Status: Acute Code(s): I10 - Essential (primary) hypertension - Assessment / Plan Additional Assessment/Plan Details: I'm going to check another set of liver enzymes, and a comprehensive metabolic panel. I would expect that if this is acute alcoholic hepatitis by Maddrey's coefficient, the patient is at very low risk of from acute alcoholic hepatitis. I still don't know for sure if there could have been nonobstructive stones or sludge in the common bile duct, but GI suggests no need for ERCP based on normal common bile duct caliber on MRI of abdomen. No fevers and no right upper quadrant pain although positive Mills sign on ultrasound. I don't think he has acute cholecystitis. We may need to consider a HIDA scan to evaluate gallbladder function in the future but not at this time with acute pancreatitis. Once acute pancreatitis resolves, consider HIDA scan to evaluate gallbladder function although this can be done as an outpatient as well. I'll allow ice chips and water today, and if lipase normalizes then start back in on diet. Check PT and INR tomorrow to get more information on liver function. Thus far, no significant alcohol withdrawal. Continue Synthroid replacement. May have to add anti-hypertensive medication as well.
[2018-06-28] MEDS: LEVOTHYROXINE 50 MCG TABLET PO SCH (04:32)
[2018-06-28] MEDS: HEPARIN 5000 UNIT/1 ML SUBCUT SCH ×3 (04:32→20:48)
[2018-06-28] MEDS: D5-1/2NS + 10mEq KCL 1,000 ML PRIMARY IV SCH (04:52)
[2018-06-28 05:05] LABS: LIPASE 280 IU/L (23-300); SERUM ALBUMIN 2.7 g/dL (3.5-4.8)
[2018-06-28 05:06] LABS: BLOOD UREA NITROGEN < 2 mg/dL (7-22); BUN/CREATININE RATIO 3.33 (6-20)
[2018-06-28] MEDS: Thiamine Tab 100 MG TAB PO SCH (08:01)
[2018-06-28] MEDS ORDERED: POTASSIUM CHLORIDE 20 MEQ TAB PO ONE (09:13)
--- NOTE | 2018-06-28 13:26 | PDOC(PROG) ---
Date of Service: 06/28/18 Time of Service: 13:22 Interval History: Feels better. Had slight twinge of right upper quadrant pain eating but no epigastric pain and no band tenderness around the abdomen. No nausea or vomiting and feels better. No chest pain and no shortness of breath. He attributed the pain to just having something in his stomach suddenly. Objective : Data - Labs CBC and BMP: 06/27/18 04:25 06/28/18 04:30 Additional Lab Results: 06/28/18 04:30 Total Bilirubin 4.3 H AST 466 H ALT 609 H Alkaline Phosphatase 182 H Total Protein 5.0 L Albumin 2.7 L Globulin 2.3 L Albumin/Globulin Ratio 1.10 L Lipase 280 Objective : Exam - General General Appearance: No Acute Distress, Cooperative - Eye Eye Exam: No Scleral Icterus - ENT ENT Exam: Mucous Membranes Moist - Respiratory Respiratory Exam: Clear to Auscultation - Bilaterally, Breathing Non Labored - Cardiovascular Cardiovascular Exam: RRR, No Murmur, No Clicks, No Gallops, No Rubs, No JVD - GI/Abdominal GI/Abdominal Exam: Normal Bowel Sounds, Non Distended, Soft Additional GI/Abdominal Exam Details: Minimal tenderness right upper quadrant - Extremities Extremities Exam: No Clubbing Present, No Edema Present, No Cyanosis Present - Neurological Neurological Exam: Alert, Oriented x 3, No Facial Droop, Speech Intact / Clear, Moves All Extremities Equally - Psychiatric Psychiatric Exam: Flat Affect Assessment and Plan - Patient Problems (1) Acute alcoholic hepatitis Current Visit: Yes Status: Acute Code(s): K70.10 - Alcoholic hepatitis without ascites (2) Alcohol withdrawal syndrome Current Visit: Yes Status: Resolved Code(s): F10.239 - Alcohol dependence with withdrawal, unspecified Qualifiers: Complication of substance-induced condition: uncomplicated Qualified Code(s ): F10.230 - Alcohol dependence with withdrawal, uncomplicated (3) Cholelithiasis Current Visit: Yes Status: Acute Code(s): K80.20 - Calculus of gallbladder without cholecystitis without obstruction Qualifiers: Cholelithiasis location: gallbladder Cholecystitis presence: without cholecystitis Biliary obstruction: without biliary obstruction Qualified Code(s): K80.20 - Calculus of gallbladder without cholecystitis without obstruction (4) Hypothyroidism Current Visit: Yes Status: Acute Code(s): E03.9 - Hypothyroidism, unspecified Qualifiers: Hypothyroidism type: acquired Qualified Code(s): E03.9 - Hypothyroidism, unspecified (5) Psychiatric disorder Current Visit: Yes Status: Acute Code(s): F99 - Mental disorder, not otherwise specified (6) Hypertension Current Visit: Yes Status: Acute Code(s): I10 - Essential (primary) hypertension (7) Alcoholic pancreatitis Current Visit: Yes Status: Resolved Code(s): K85.20 - Alcohol induced acute pancreatitis without necrosis or infection Qualifiers: Chronicity: acute Acute pancreatitis complication: no infection or necrosis Qualified Code(s): K85.20 - Alcohol induced acute pancreatitis without necrosis or infection - Assessment / Plan Additional Assessment/Plan Details: Patient's pancreatitis appears resolved with a normal lipase today. I'll go ahead and let patient have a regular diet. He has known gallstones, but no fevers and no elevation in white blood cell count. The patient may have had very mild acute alcoholic hepatitis, and it does appear to be improving. ALT and AST are both improved today. I like to check and make sure that that trend continues tomorrow. We will go ahead and stop fluids today. CMP tomorrow. Replace potassium Continue antihypertensive therapy and Synthroid therapy for hypothyroidism. Will need TSH and free T4 in 6 weeks or so.
[2018-06-29 05:46] LABS: BLOOD UREA NITROGEN 3 mg/dL (7-22); BUN/CREATININE RATIO 3.75 (6-20)
[2018-06-29] MEDS: HEPARIN 5000 UNIT/1 ML SUBCUT SCH (06:23)
[2018-06-29] MEDS: LEVOTHYROXINE 50 MCG TABLET PO SCH (06:23)
[2018-06-29] MEDS: Thiamine Tab 100 MG TAB PO SCH (08:13)
[2018-06-29 11:10] VITALS: O2SAT 96
[2018-06-29 11:12] VITALS: BP 159/97; RESP 20; TEMP 97.2
--- NOTE | 2018-06-29 13:03 | DCSUMMARY ---
Hospitalization Summary Admit Date: 06/23/2018 Discharge Date: 06/29/18 Primary Diagnosis:: alcoholic hepatitis and pancreatitis, alcoholic Secondary Diagnosis:: Electrolyte abnormalities, replaced Hypothyroidism, likely acquired Hypertension Psychiatric disorder not otherwise specified Hospital Course: This is a 47-year-old male who was admitted in the setting of a blood alcohol of over 400, abdominal pain, and signs and symptoms of pancreatitis. CT scan was done and although was negative for pancreatic inflammation, and did show diffuse gallstones in the gallbladder. The patient was admitted, surgical consultation was obtained and it was felt that the pancreatitis was likely related to alcohol and not to gallstones. Eventually an abdominal MRI scan was done and there was no evidence of any obstruction on that study. Liver enzymes were elevated but in discussion with gastroenterology in [place], was felt that this was likely more of a representation of acute alcoholic hepatitis. Liver enzymes did improve throughout the hospital stay. In terms of pancreatitis, did improve, the patient ate and then had return of pain, so we placed him back on an nothing by mouth diet and treated his pain and his symptoms improved. Once the lipase was normal, we advanced the diet and the patient did not have any recurrence of pain. In terms of acute alcoholic hepatitis, the patient was treated with IV fluids and supportively, and alcohol cessation during the hospital stay. He was also treated with the CIWA protocol for potential withdrawal although he had really no significant alcohol withdrawal syndrome on this hospital stay. We did find that the patient has hypothyroidism and started to replace his thyroid and he does need a TSH and free T4 checked in 8 weeks. The patient has hypertension and we elected to treat that with amlodipine, and he should have another blood pressure check as an outpatient. No complaints of chest pain, shortness breath, nausea or vomiting today. Assessment and Plan: 1. As per discharge assessments noted 2. Disposition: patient is discharged to [facility]. He is currently in custody. 3. Condition on discharge, stable and improved. 4. Diet: regular diet 5. Activities: resume normal activities, but no alcohol 6. Follow-Up: 1. Primary care provider in 7-10 days 7. Medications at the Time of Discharge: Home Medications 3 Medication Instructions Recorded Confirmed Type Amlodipine Besylate [Norvasc] 10 mg PO DAILY #90 tab 06/29/18 Rx Levothyroxine Sodium [Synthroid] 50 mcg PO DAILY@0530 #90 tab 06/29/18 Rx 8. Time, care, counseling and coordination of care for this discharge is greater than 30 minutes. Exam - Vitals Vital Signs: Vital Signs Temperature 97.2 F Temperature Source Temporal Artery Scan Pulse Rate [Apical] 78 Pulse Rate [Pulse Oximeter 86 Right] Pulse Rate 60 Respiratory Rate 20 Blood Pressure [Right Arm] 159/97 Blood Pressure [Left Arm] 158/105 Blood Pressure 158/92 Pulse Ox 96 Oxygen Flow Rate 96 Oxygen Delivery Method Room Air Height 6 ft 2 in Weight 233 lb - General General Appearance: No Acute Distress, Cooperative - Head Head Exam: Normal Inspection, Normocephalic, Atraumatic - Eye Eye Exam: POSITIVE: No Scleral Icterus - ENT ENT Exam: POSITIVE: Mucous Membranes Moist - Respiratory Respiratory Exam: POSITIVE: Clear to Auscultation - Bilaterally, Breathing Non Labored - Cardiovascular Cardiovascular Exam: POSITIVE: RRR, No Murmur, No Clicks, No Gallops, No Rubs, No JVD - GI/Abdominal GI/Abdominal Exam: POSITIVE: Normal Bowel Sounds, Non Tender, Non Distended, Soft - Extremities Extremities Exam: POSITIVE: No Clubbing Present, No Edema Present, No Cyanosis Present - Neurological Neurological Exam: POSITIVE: Alert, Oriented x 3, No Facial Droop, Speech Intact / Clear, Moves All Extremities Equally Data Peritnent Studies: 06/23/18 06/23/18 06/23/18 17:00 17:00 17:00 PT INR Sodium Potassium Chloride Carbon Dioxide Anion Gap BUN Creatinine Estimated GFR BUN/Creatinine Ratio Glucose Calculated Osmolality Calcium Total Bilirubin AST ALT Alkaline Phosphatase Total Protein Albumin Globulin Albumin/Globulin Ratio Amylase 218 H Lipase 856 H TSH 9.96 H Free T4 0.85 L Serum Alcohol 414 H 06/24/18 06/28/18 06/28/18 04:07 04:30 04:30 PT 12.9 H INR 1.25 Sodium Potassium Chloride Carbon Dioxide Anion Gap BUN Creatinine Estimated GFR BUN/Creatinine Ratio Glucose Calculated Osmolality Calcium Total Bilirubin AST ALT Alkaline Phosphatase Total Protein Albumin Globulin Albumin/Globulin Ratio Amylase 180 H Lipase 280 TSH Free T4 Serum Alcohol 06/29/18 04:50 PT INR Sodium 135 Potassium 3.8 Chloride 108 Carbon Dioxide 21 L Anion Gap 6 BUN 3 L Creatinine 0.8 Estimated GFR > 60 BUN/Creatinine Ratio 3.75 L Glucose 93 Calculated Osmolality 276.0 Calcium 8.9 Total Bilirubin 4.5 H AST 246 H ALT 490 H Alkaline Phosphatase 200 H Total Protein 6.0 L Albumin 3.0 L Globulin 3.0 Albumin/Globulin Ratio 1.00 L Amylase Lipase TSH Free T4 Serum Alcohol Procedures: [address] [facility] [facility] [place] [address] PH: DD: [phone] FAX: [phone] ~DIAGNOSTIC IMAGING REPORT~ Patient: Ivan Caputo : 1970 Sex: M Age: 47 Exam Name: MRI Abdomen WO Contrast Exam Date: 06/27/18 Report # : [id number] CPT Code: 41416 EMR/MR #: [id number] Ordering: PROMISE RICHTER Admiting: BARTOLO ARMAS MD. Primary: NONE,NONE Attending: BARTOLO ARMAS MD. Signed MRI Abdomen WO Contrast,06/27/2018 7:29 AM: Clinical History: Pancreatitis and sludge. Question common bile duct stone. Previous Exam: None at this facility. Findings: Multiplanar MR images are obtained through the abdomen following MRCP protocol, and demonstrate layering stones within the gallbladder with a thickened gallbladder wall. The common bile duct is within normal limits. There is no evidence of filling defect or truncation. Visualized portions of the pancreatic duct are normal. Limited evaluation of the spleen, liver, adrenals and kidneys are unremarkable. The major vascular flow voids are unremarkable. Impression: Cholelithiasis and thickening of the gallbladder wall without common bile duct stones. Dictated By: 06/27/18 0848 AZAEL MARRERO MD. Signed By: 06/27/18 0858 AZAEL MARRERO MD. [address] [facility] [place] [address] PH: DD: [phone] FAX: [phone] ~DIAGNOSTIC IMAGING REPORT~ Patient: CAPUTO,ADAM : 1970 Sex: M Age: 47 Exam Name: US Abdomen Limited Exam Date: 06/23/18 Report # : [id number] CPT Code: 12048 EMR/MR #: [id number] Ordering: CYNDI HAMLIN Admiting: Primary: NONE,NONE Attending: Signed EXAM: US Abdomen Limited, Right Upper Quadrant CLINICAL HISTORY: ITS.REASON gallstones, elevated pancreous enzymes Physician Notes: Tech Comments: TECHNIQUE: Real-time ultrasound of the right upper quadrant with image documentation. COMPARISON: No relevant prior studies available. FINDINGS: Liver: Echogenic liver suggesting fatty infiltration or hepatocellular disease. Hepatomegaly, 19.4 cm. Gallbladder: Cholelithiasis and sludge. The gallbladder wall is at upper limits of normal measuring 3 mm. Positive sonographic Mills sign. Common bile duct: Common bile duct upper limit of normal measuring 6 mm Pancreas: Pancreas is the mostly obscured. Right kidney: No hydronephrosis. IMPRESSION: Cholelithiasis and sludge. The gallbladder wall is at upper limits of normal measuring 3 mm. Positive sonographic Mills sign. Dictated By: Jesse Reyes MD Signed By: 06/23/18 2310 Jesse Reyes MD [address] [facility] [place] [address] PH: DD: [phone] FAX: [phone] ~DIAGNOSTIC IMAGING REPORT~ Patient: IVAN CAPUTO : 1970 Sex: M Age: 47 Exam Name: CT Head WO Contrast Exam Date: 06/23/18 Report # : [id number] CPT Code: 10937 EMR/MR #: [id number] Ordering: CYNDI HAMLIN Admiting: Primary: NONE,NONE Attending: Signed CT Head WO Contrast,06/23/2018 6:23 PM: Clinical History: Confusion Previous Exam: None at this facility. Findings: Multiple helically acquired CT images are obtained through the brain without contrast, and demonstrate mild diffuse age-related volume loss. There is no mass , hemorrhage or midline shift. Surrounding soft tissue and osseous structures are unremarkable. Impression: Mild diffuse age-related volume loss otherwise unremarkable. Dictated By: 06/23/181950 AZAEL MARRERO MD. Signed By: 06/23/181956 AZAEL MARRERO MD. [address] [facility] [facility] [place] [address] PH: DD: [phone] FAX: [phone] ~DIAGNOSTIC IMAGING REPORT~ Patient: IVAN CAPUTO : 1970 Sex: M Age: 47 Exam Name: CT Abdomen/Pelvis W Contrast Exam Date: 06/23/18 Report # : [id number] CPT Code: 73953 EMR/MR #: [id number] Ordering: CYNDI HAMLIN Admiting: Primary: NONE,NONE Attending: Signed CT Abdomen/Pelvis W Contrast,06/23/2018 6:22 PM: Clinical History: Elevated pancreatic enzymes. Previous Exam: None at this facility. Findings: Multiple helically acquired CT images are obtained through the abdomen and pelvis following the intravenous administration of 75 cc of Isovue 300, and demonstrates clear lung bases. A few coronary artery calcifications are seen. There is diffuse fatty infiltration of the liver. The gallbladder is enlarged and distended with stones within the gallbladder neck. The spleen is unremarkable. The pancreas, adrenals are unremarkable. There are prominent extrarenal pelves bilaterally. There is normal orthotopic insertion of the ureters on the urinary bladder. The urinary bladder is enlarged and distended. The sigmoid colon is unremarkable. The descending colon, transverse colon and ascending colon are unremarkable. Diffuse degenerative changes of the spine are seen with loss of intervertebral disc height at the L5/S1 level. Impression: 1. Enlarged, distended gallbladder containing layering stones within the gallbladder neck. 2. Enlarged and distended urinary bladder with some prominence of the ureters. 3. Fatty liver. 4. Normal pancreas. Dictated By: 06/23/182013 AZAEL MARRERO MD. Signed By: 06/23/182021 AZAEL MARRERO MD. Patient Problems - Patient Problem List (1) Acute alcoholic hepatitis Current Visit: Yes Status: Acute Code(s): K70.10 - Alcoholic hepatitis without ascites Category: Medical (2) Alcohol withdrawal syndrome Current Visit: Yes Status: Resolved Code(s): F10.239 - Alcohol dependence with withdrawal, unspecified Qualifiers: Complication of substance-induced condition: uncomplicated Qualified Code(s ): F10.230 - Alcohol dependence with withdrawal, uncomplicated Category: Medical (3) Cholelithiasis Current Visit: Yes Status: Acute Code(s): K80.20 - Calculus of gallbladder without cholecystitis without obstruction Qualifiers: Cholelithiasis location: gallbladder Cholecystitis presence: without cholecystitis Biliary obstruction: without biliary obstruction Qualified Code(s): K80.20 - Calculus of gallbladder without cholecystitis without obstruction Category: Medical (4) Hypothyroidism Current Visit: Yes Status: Acute Code(s): E03.9 - Hypothyroidism, unspecified Qualifiers: Hypothyroidism type: acquired Qualified Code(s): E03.9 - Hypothyroidism, unspecified Category: Medical (5) Psychiatric disorder Current Visit: Yes Status: Acute Code(s): F99 - Mental disorder, not otherwise specified Category: Medical (6) Hypertension Current Visit: Yes Status: Acute Code(s): I10 - Essential (primary) hypertension Qualifiers: Hypertension type: essential hypertension Qualified Code(s): I10 - Essential (primary) hypertension Category: Medical (7) Alcoholic pancreatitis Current Visit: Yes Status: Resolved Code(s): K85.20 - Alcohol induced acute pancreatitis without necrosis or infection Qualifiers: Chronicity: acute Acute pancreatitis complication: no infection or necrosis Qualified Code(s): K85.20 - Alcohol induced acute pancreatitis without necrosis or infection Category: Medical
== END 2018-06-29 13:30 | DRG 444 ==
LOC: ER 16:38 → MED/SURG 06-24 01:41
PROVIDERS: ADMIT Internal Medicine; ATTEND Internal Medicine